=== PATIENT | female | born 1940 | race Caucasian/White ===

== ENCOUNTER → 2017-11-01 07:50 | Outpatient (CLI) | payer BC, SELFPAY ==
--- NOTE | 2017-11-01 | DI.MRI.S_ITS ---
PROCEDURE: MR KNEE RT WO CON INDICATIONS: PAIN IN RIGHT KNEE TECHNIQUE: Noncontrast sagittal PD fast spin echo and T2 fast spin echo with fat saturation, sagittal 3-D FLASH with fat saturation; coronal T1 spin echo and PD fast spin echo with fat saturation, and axial PD fast spin echo with fat saturation through the knee. COMPARISON: None. FINDINGS: Image quality: Excellent. Menisci: There is degenerative signal in complex tearing of the medial meniscus. This includes a vertically oriented longitudinal tear predominantly involving the body with extension to the superior and inferior articular surfaces. There is also extension into the anterior horn along the inferior articular surface peripherally. Extension into the posterior horn is noted with irregularity along the superior sacral surface. There is mild degenerative radial tearing along free edge in the posterior horn. A small inferior flap tear component is also noted with mild peripheral extrusion inferiorly. The lateral meniscus and meniscal root ligaments appear intact. Cruciate ligaments: The anterior and posterior cruciate ligaments appear intact. Medial structures: The medial collateral ligament appears intact. The semimembranosus tendon insertions and meniscocapsular junction appear intact. Visualized portions of the pes anserinus tendons appear intact without associated bursal fluid collections. Lateral structures: The lateral collateral ligament, long and short heads of the biceps femoris tendon appear intact. The popliteal tendon demonstrates mild attenuation proximally with mild edema tracking along its course to the myotendinous junction compatible with a mild strain. Iliotibial band appears normal. Anterior structures: The quadriceps and patellar tendons appear intact. Patellar alignment is normal. No femoral trochlear dysplasia or ventral trochlear prominence. No edema in the infrapatellar fat pad. Bones and cartilage: No bone marrow contusions or fractures. There is an osteochondral lesion along the medial femoral condyle with underlying subchondral cystic change and edema. Subchondral edema is also demonstrated peripherally in the medial tibial plateau. In the medial compartment, there is moderate to severe overall cartilage thinning with areas of apparent full-thickness cartilage loss peripherally. In the lateral compartment, there is mild superficial contour irregularity. In the patellofemoral compartment, there is also mild superficial chondral fraying medially. Mild osteophytosis is present. Joint space: There is a minimal joint effusion. No definite joint body is present There is a small lobulated Cruz's cyst. Normal appearing synovial plicae are incidentally noted. IMPRESSION: 1. Osteochondral lesion in the medial femoral condyle with underlying subchondral edema and cystic change. 2. Osteoarthritic changes of the knee most prominent in the medial compartment where there is also additional moderate to severe overall cartilage thinning with associated subchondral edema. 3. Complex tearing of the medial meniscus as described. 4. Findings suggestive of a mild strain of the proximal popliteal tendon. Dictated by: Albino Dumont M.D. on 11/01/2017 at 11:14 Approved by: Albino Dumont M.D. on 11/01/2017 at 11:25
== END ==
PROVIDERS: Visit Provider Orthopaedic Surgery
DX: S83.231A Complex tear of medial meniscus, current injury, right knee, initial encounter (principal); M25.561 Pain in right knee; M17.11 Unilateral primary osteoarthritis, right knee; M93.961 Osteochondropathy, unspecified, right lower leg
CPT/HCPCS: 73721

== ENCOUNTER → 2018-03-23 10:51 | Outpatient (CLI) | payer BC, SELFPAY ==
[2018-03-23 11:21] LABS: WBC Urine None Seen (0-5/HPF)
[2018-03-23 11:30] LABS: Add Manual Diff / Slide Review NO; Basophils Percent Auto 0.5 % (0-2); Eosinophils Percent Auto 1.5 % (2-4); Hemoglobin 13.8 g/dL (12.0-16.0); Lymphocytes Percent Auto 28.5 % (25-40); Mean Corpuscular HGB Conc 33.6 % (30-36); Mean Corpuscular Hemoglobin 30.2 PG (26-34); Monocytes Percent Auto 5.7 % (3-14); Neutrophils Absolute Auto 5300 /uL (1500-7000); Neutrophils Percent Auto 63.8 % (50-75); Platelet Count 206 X10^3/uL (150-400); Red Blood Cell Count 4.56 X10^6/uL (4.0-5.2); Red Cell Distribution Width 14.4 % (11.6-14.8); White Blood Cell Count 8.3 X10^3/uL (4.5-11.0)
[2018-03-23 11:38] LABS: Hemoglobin A1C% w Est Avg Glu 5.9 % (4.0-6.0)
[2018-03-23 12:10] LABS: Appearance Urine UA CLEAR; Bilirubin Urine UA NEGATIVE (NEGATIVE); Color Urine UA YELLOW; Glucose Urine UA NEGATIVE (Negative); Ketones Urine UA NEGATIVE (NEGATIVE); Leukocyte Esterase Urine UA NEGATIVE (NEGATIVE); Nitrite Urine UA NEGATIVE (Negative); Occult Blood Urine UA 1+ (Negative); Protein Urine UA NEGATIVE (Negative); Specific Gravity Urine UA >=1.030 (1.000-1.035); Urobilinogen Urine UA 0.2 E.U./dL (0.2)
[2018-03-23 12:19] LABS: BUN Creatinine Ratio 23.8 (6-22); Blood Urea Nitrogen 19 mg/dL (7-17); Calcium 9.8 mg/dL (8.4-10.2); Carbon Dioxide 24 mmol/L (22-32); Chloride 105 mmol/L (98-107); Estimated Glomerular Filt Rate > 60.0 mL/min (>60); Glucose 112 mg/dL (80-110); HEMOLYSIS < 15 (0-50); Potassium 4.2 mmol/L (3.4-5.1); Sodium 141 mmol/L (137-145)
[2018-03-23 12:20] LABS: Bacteria Urine Occasional (0-1); Culture Indicated Urine Cult Not Indicated; Mucus Urine 1+ (Negative); RBC Urine 0-1/HPF (0-5/HPF)
== END ==
PROVIDERS: Visit Provider Orthopaedic Surgery
DX: Z01.818 Encounter for other preprocedural examination (principal); Z01.812 Encounter for preprocedural laboratory examination; Z13.1 Encounter for screening for diabetes mellitus; N39.9 Disorder of urinary system, unspecified
CPT/HCPCS: 36415; 80048; 81001; 83036; 85025; 93005; 93010

== ENCOUNTER → 2021-07-05 11:23 | Outpatient (CLI) | payer BC, SELFPAY | PROVIDERS: Referring Provider Orthopaedic Surgery; Visit Provider Orthopaedic Surgery | DX: Z01.818 Encounter for other preprocedural examination (principal) | CPT/HCPCS: 93005 ==